=== PATIENT | male | born 1975 | race Caucasian/White ===

== ENCOUNTER 2019-02-02 05:26 | Day surgery (SDC) | payer OTHER ==
[~2019-02-02] VITALS: Ht 170.2 cm; Wt 106.6 kg
[2019-02-02 06:20] LABS: HEMATOCRIT 42.3 % (42.0-54.0); HEMOGLOBIN 14.9 g/dL (13.5-17.5); MCH 29.9 pg (26.0-34.0); MCHC 35.2 g/dL (31.0-37.0); MCV 84.8 fL (80.0-100.0); RBC 4.99 10x6/uL (4.20-6.10); RDW 12.8 % (11.5-14.5)
[2019-02-02 06:21] LABS: CALC OSMOLALITY 283 mosm/kg (275-300); CALCIUM 8.8 mg/dL (8.5-10.1); CARBON DIOXIDE 26.9 mmol/L (21.0-32.0); CHLORIDE - SERUM 106 mmol/L (98-107); CREATININE - SERUM 0.9 mg/dL (0.6-1.3); GLUCOSE 98 mg/dL (74-106); POTASSIUM - SERUM 4.2 mmol/L (3.5-5.1); SODIUM 142 mmol/L (136-145); UREA NITROGEN 15 mg/dL (7-18); eGFR NON AFRICAN AMERICAN > 90 mL/min (90-120)
[2019-02-02] MEDS ORDERED: NORVASC10 MG PO (07:29)
[2019-02-02] MEDS ORDERED: MOTRIN600 MG PEG (07:30)
[2019-02-02] MEDS ORDERED: BUSPAR 15 MG TA15 MG PO (07:30)
[2019-02-02] MEDS ORDERED: OMEPRAZOLE20 M1 PO (07:31)
[2019-02-02] MEDS ORDERED: LOPRESSOR25 MG PO (07:31)
[2019-02-02 07:32] VITALS: BP 121/74; Ht 170.2 cm; Wt 106.6 kg
[2019-02-02] MEDS ORDERED: HYDROCODON-ACE1 EA10 PO (09:59)
--- NOTE | 2019-02-02 11:21 | NUR ---
DR. DOYLE NOTIFIED AND REVIEWED PT'S BEHAVIOR AND ASSESSMENT RESULTS. PT IS A LOW RISK PER DR. CEDENO STATED TO GIVE RESOURCES TO PT AT TIME OF DISCHARGE. NO FURTHER ORDERS AT THIS TIME. RESOURCES REVIEWED WITH PT AND HE VERBALIZIED UNDERSTANDING.
--- NOTE | 2019-02-06 11:59 | OP ---
PATIENT NAME: YOLIS MCALLISTER MEDICAL RECORD: [id number] :73 LOCATION:[facility] ADMISSION DATE: SURGEON: ELSA GOODRICH MD DATE OF OPERATION: 02/02/2019 PREOPERATIVE DIAGNOSIS: Painful right olecranon bursitis. POSTOPERATIVE DIAGNOSIS: Painful right olecranon bursitis. PROCEDURE: Right olecranon bursectomy. SURGEON: Elsa Goodrich MD AGENCY TRAINER: HTI Silva INTRAOPERATIVE COMPLICATIONS: None. SUMMARY OF PATHOLOGIC FINDINGS: The patient had a large bursal sac just over the olecranon consistent with preoperative diagnosis as well as the patient's symptoms. He did not appear to be infectious at all and it was sent in its entirety to pathology. OPERATIVE SUMMARY IN DETAIL: After obtaining the appropriate preoperative orthopedic surgery consent as well as anesthetic consultation, evaluation, and clearance, the patient was brought to the operating room and placed in supine position. After adequate general laryngeal mask airway was administered, tourniquet was placed about the proximal aspect of the right upper extremity. Right upper extremity was then prepped and draped in routine sterile fashion. The arm was elevated and exsanguinated, tourniquet was inflated to 250 mmHg. With a cross arm test approach, incision was made directly over the olecranon, taken down to the olecranon sac. Care was taken to dissect the entire olecranon bursa out without disrupting the olecranon bursa itself. This resulted in a near periosteal resection and the olecranon bursa was sent to pathology in its entirety. There were no excessive bony prominences seen on x-ray nor were they found at the time of surgery. At this point, the wound was copiously irrigated and closed by THI Silva with 2-0 Vicryl, followed by 3-0 Prolene. A compressive dressing was applied. The patient was then awakened and taken to recovery room in stable condition. All final needle and sponge counts were correct. 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
== END 2019-02-02 11:40 ==
LOC: D.OPS 05:26 → D.PAN 08:00 → D.OPS 08:00
PROVIDERS: Anesthesiology; ATTEND Orthopaedic Surgery
DX: M70.21 Olecranon bursitis, right elbow (principal)